=== PATIENT | male | born 1985 | race Asian ===

== ENCOUNTER → 2022-05-06 | Outpatient (CLI) | payer OTHER ==
--- NOTE | 2022-05-07 09:03 | US ---
EXAMINATION TYPE: US scrotum with doppler. DATE OF EXAM: 05/06/2022 COMPARISON: NONE CLINICAL HISTORY: 37-year-old male N50.811 RIGHT TESTICULAR PAIN. TECHNIQUE: Grayscale and color Doppler Duplex imaging performed of the scrotum. FINDINGS: EXAM MEASUREMENTS: TESTICLES: Right Testicle: 3.4 x 2.1 x 2.6 cm Left Testicle: 3.3 x 2.0 x 2.2 cm EPIDIDYMIS HEAD: Right Epididymis: 0.9 cm Left Epididymis: 0.7 cm Doppler performed to assess for testicular vascularity; good bilateral color flow and waveforms are s een. There is no evidence of testicular torsion. Presence of hydroceles: No Presence of varicoceles: No IMPRESSION: Unremarkable sonographic examination of the scrotum and testicles.
== END | disposition home or self-care (01) ==
LOC: RADUSWWP 16:58
PROVIDERS: ATTEND Urology
DX: N50.811 Right testicular pain (principal)
CPT/HCPCS: 76870; 93975

== ENCOUNTER → 2022-11-08 | Outpatient (CLI) | payer OTHER ==
[2022-11-08 15:51] LABS: HCT 45.6 % (39.6-50.0); HGB 15.7 d/dL (13.0-17.0); MCH 29.6 pg (27.0-32.0); MCHC 34.4 d/dL (32.0-37.0); Mean Platelet Volume 10.3 FL (9.5-12.2); NRBC Per 100 WBC 0 X 10*3/uL (0.00-0.01); Platelet Count 295 X 10*3/uL (140-440); RDW 12.1 % (11.5-14.5); WBC 8.47 X 10*3/uL (4.50-10.00)
[2022-11-08 16:07] LABS: ALT 49 U/L (10-49); AST 32 U/L (14-35); Albumin 4.8 d/dL (3.8-4.9); Alkaline Phosphatase 93 U/L (41-126); BUN/Creat Ratio 12.89 Ratio (12.00-20.00); Blood Urea Nitrogen 11.6 mg/dL (9.0-27.0); Calcium 9.8 mg/dL (8.7-10.3); Chloride 103 mmol/L (96-109); Globulin 2.4 d/dL (1.6-3.3); Glucose 100 mg/dL (70-110); Potassium 4.2 mmol/L (3.5-5.5); Sodium 141 mmol/L (135-145); Total Bilirubin 0.8 mg/dL (0.3-1.2); Total Protein 7.2 d/dL (6.2-8.2)
== END | disposition home or self-care (01) ==
LOC: LABWHC1 09:08
PROVIDERS: ATTEND Nurse Practitioner Family
DX: R10.9 Unspecified abdominal pain (principal)
CPT/HCPCS: 36415; 80053; 82272; 85027

== ENCOUNTER → 2024-03-05 | Outpatient (CLI) | payer OTHER ==
--- NOTE | 2024-03-05 09:28 | US ---
EXAMINATION TYPE: US abdomen complete DATE OF EXAM: 03/05/2024 COMPARISON: NONE CLINICAL INDICATION: Male, 38 years old with history of R10.11 RUQ PAIN; RUQ pain TECHNIQUE: Grayscale and color Doppler imaging of the abdomen was performed. FINDINGS: EXAM MEASUREMENTS: Liver Length: 14.9 cm Gallbladder Wall: 0.1 cm CBD: 0.3 cm, color Doppler imaging was utilized to isolate the common bile duct for measurement. Spleen: 11.2 cm Right Kidney: 11.5x4.6x5.4 cm Left Kidney: 10.2x6.2x5.1 cm COLLABORATIVE PHYSICIAN NOTES: Pancreas: Tail obscured by overlying bowel gas Liver: echogenic Gallbladder: wnl Evidence for sonographic Matthews's sign: No CBD: wnl Spleen: wnl Right Kidney: wnl Left Kidney: wnl Upper IVC: wnl Abd Aorta: wnl exam limited by bowel and habitus IMPRESSION: 1. Mild fatty infiltration liver [facility] Lana Mejia, , 03/05/2024 9:26 AM
== END | disposition home or self-care (01) ==
LOC: RADUSWWP 07:31
PROVIDERS: ATTEND Family Medicine
DX: K76.0 Fatty (change of) liver, not elsewhere classified (principal)
CPT/HCPCS: 76700